=== PATIENT | female | born 1945 | race African-American/Black ===

== ENCOUNTER 2019-08-02 08:42 | Inpatient (IN) ==
--- NOTE | 2019-08-02 09:46 | Diag Imaging Result Doc PS360 ---
EXAM: CT HEAD W/O CONTRAST HISTORY: stroke like symptoms TECHNIQUE: Images were obtained from the skull base to vertex without IV contrast as per standard protocol. This exam was performed using automated exposure control, adjustment of mA or kV according to patient size, and/or use of iterative reconstruction technique. COMPARISON: 12/18/2018 There are no extra-axial collections. No acute hemorrhage is appreciated. There is deep white matter hypodensity similar to prior study suggestive of microvascular disease. No hydrocephalus, midline shift, or mass effect is identified. IMPRESSION: Atrophy and microvascular disease. No acute intracranial abnormality is appreciated. Electronically signed by Dina Escoto 08/02/2019 9:44 AM
[2019-08-02] MEDS ORDERED: NS 1,000 ML ONE (09:54)
[2019-08-02] MEDS ORDERED: NS 1,000 ML IV ONE (10:16)
[2019-08-02 10:34] LABS: BASO# 0.03 X1000 (0.0-0.2); BASO% 0.8 % (0.0-0.8); EOS# 0.14 X1000 (0.0-0.7); EOS% 3.6 % (0.0-10.0); HEMATOCRIT 39.9 % (37.0-47.0); HEMOGLOBIN 12.9 g/dL (12.0-16.0); LYMPH# 1.59 X1000 (1.2-3.4); LYMPH% 41.1 % (20.5-51.1); MCH 31.8 PG (27-31); MCHC 32.3 g/dL (33-37); MCV 98.3 FL (81-99); MONO# 0.41 X1000 (0.11-0.59); MONO% 10.6 % (1.7-9.3); MPV 9.8 FL (7.4-10.4); NEUT% 43.9 % (42.2-75.2); PLT 168 X1000 (130-400); RBC 4.06 XMIL (4.2-5.4); RDW 14.1 % (11.5-14.5); WBC 3.87 X1000 (4.8-10.8)
[2019-08-02 10:51] LABS: UR AMPHETAMINES QUAL NONE DETECTED (NONE DETECT); UR BARBITUATES QUAL NONE DETECTED (NONE DETECT); UR BENZODIAZEPIN QUAL NONE DETECTED (NONE DETECT); UR COCAINE QUAL NONE DETECTED (NONE DETECT); UR METHADONE QUAL NONE DETECTED (NONE DETECT); UR METHAMPHETAMINE QUAL NONE DETECTED (NONE DETECT); UR OPIATES QUAL PRESUMPTIVE POSITIVE (NONE DETECT); UR OXYCODONE QUAL NONE DETECTED (NONE DETECT); UR PCP QUAL NONE DETECTED (NONE DETECT); UR PROPOXYPHENE QUAL NONE DETECTED (NONE DETECT); UR TCA QUAL NONE DETECTED (NONE DETECT)
[2019-08-02 10:52] LABS: UR CANNABINOIDS QUAL NONE DETECTED (NONE DETECT)
--- NOTE | 2019-08-02 10:52 | Diag Imaging Result Doc PS360 ---
EXAM: CHEST-PORTABLE HISTORY: Stroke Like Symptoms TECHNIQUE: Single view of the chest was performed portably. COMPARISON: 10/19/2018 FINDINGS: Lung volumes are reduced. There is marked cardiomegaly. Central vascular congestion. There are prominent interstitial markings right lung base. Probable small effusions. IMPRESSION: Cardiomegaly and central vascular congestion. Interstitial edema versus infiltrate right lung base. Electronically signed by Dina Escoto 08/02/2019 10:50 AM
[2019-08-02 10:55] LABS: ALBUMIN 3.8 g/dL (3.5-5.0); CALCIUM 8.6 mg/dL (8.8-10.2); CREATININE 1.1 mg/dL (0.5-0.9); POTASSIUM 4.3 mmol/L (3.5-5.1); TOTAL BILIRUBIN 0.9 mg/dL (0.20-1.00); TOTAL PROTEIN 8.1 g/dL (6.3-8.3)
[2019-08-02 11:11] LABS: INR 1.43; PROTIME 18.2 Seconds (11.0-16.0)
[2019-08-02 11:12] LABS: PTT 32.7 Seconds (22.3-41.8)
[2019-08-02] MEDS ORDERED: NITROGLYCERIN TOP ONE (11:18)
--- NOTE | 2019-08-02 11:19 | PROVIDER DOCUMENTATION ---
This chart was entered by Nadya Landers Scribe, acting as scribe for Roberto Bruce MD. HPI-Neurological Disorder - General Chief Complaint: STROKE ALERT Stated Complaint: SOB Time Seen by Provider: 08/02/19 09:06 Source: patient, EMS Allergies/Adverse Reactions: Patient Allergies Allergy/AdvReac Type Severity Reaction Status Date / Time Penicillins Allergy Mild ANAPHYLAXIS Verified 08/19/12 18:44 Iodine and Iodide Containing Allergy RASH Verified 08/02/19 09:47 Produc levofloxacin [From Levaquin] Allergy RASH Verified 08/02/19 09:47 shellfish derived Allergy ANAPHYLAXIS Verified 12/31/17 11:39 Home Medications: Home Medication List Medication Instructions Recorded Confirmed Last Taken Type Allopurinol [Zyloprim] 300 mg PO DAILY 08/02/19 08/02/19 Unknown History Hydrocodone/Acetaminophen 1 ea PO Q6HR 08/02/19 08/02/19 Unknown History [Hydrocodone-Acetamin 7.5-325] Hydroxyzine HCl 25 mg PO DAILY PRN 08/02/19 08/02/19 Unknown History Nebivolol [Bystolic] 5 mg PO DAILY 08/02/19 08/02/19 Unknown History Potassium Chloride 10 meq PO DAILY 08/02/19 08/02/19 Unknown History Probenecid 500 mg PO DAILY 08/02/19 08/02/19 Unknown History Rivaroxaban [Xarelto] 20 mg PO DAILY 08/02/19 08/02/19 Unknown History Torsemide 20 mg PO DAILY 08/02/19 08/02/19 Unknown History Triamterene/Hydrochlorothiazid 1 ea PO 08/02/19 Unknown History [Triamterene-Hctz 37.5-25 mg Cp] - History of Present Illness-Neuro Nature of Presenting Problem: 74 yobf presents to the ed via ems with acute onset of aphasia and RUE minimal weakness @ 0630am this morning. pt has had noted intermittent sob and cough for 5 days. pt communicates by writing her information down. pt denies GALAVIZ. pt has a hx of CVA in the past and is currently on blood thinners Severity: reports: moderate Onset/Duration: reports: this morning (0630) Timing: reports: still present, constant Context: reports: impaired speech. denies: head injury, facial droop, seizure activity Character of Altered Mental Status: reports: N/A Any recent trauma/injury?: reports: none Character of Deficits: reports: new weakness, impaired speech New weakness or altered sensation location:: reports: RUE Cognitive Baseline: alert, oriented x3 Gait Baseline: walks without assistance Associated Symptoms: reports: weakness (RUE), other (aphasia). denies: headache, decreased ability to walk or stand, chest pain, neck/back pain, nausea, slurred speech, trouble walking, vision changes Similar Symptoms Previously?: Yes (hx of cva) Recently seen or treated by another doctor?: No (has an appt tomorrow with dr krishnan) Review of Systems - Adult - REVIEW OF SYSTEMS - ADULT Constitutional: denies: chills, fever Eyes: reports: no symptoms reported Ears, Nose, Mouth & Throat: reports: no symptoms reported Cardiovascular: denies: chest pain, palpitations Respiratory: reports: no symptoms reported Gastrointestinal: denies: abdominal pain, diarrhea, nausea, vomiting Genitourinary: reports: no symptoms reported Musculoskeletal: reports: see HPI, other (RUE weakness). denies: back pain, neck pain Integumentary: reports: no symptoms reported Neurological: reports: see HPI, slurred speech (aphasia). denies: dizziness/vertigo, headache/migraines Psychiatric: reports: no symptoms reported Endocrine: reports: no symptoms reported Hematologic/Lymphatic: reports: no symptoms reported Allergic/Immunologic: reports: no symptoms reported All Other Systems: Reviewed and Negative Past History - Adult - PAST MEDICAL HISTORY-ADULT Review of Records: reports: Old Records Reviewed, Nursing Assessment Review, Medications Reviewed, Social history reviewed & non-contributory. Major Childhood Illnesses: reports: denies history Cardiovascular: reports: A-Fib, HTN, hyperlipidemia Respiratory: reports: COPD, pneumonia Gastrointestinal: reports: GERD Obstetrical/Gynecological: reports: denies history Genitourinary: reports: denies history Musculoskeletal: reports: denies history Neurological: reports: CVA Endocrine/Immune: reports: denies history Other Conditions: reports: denies history - PRIOR SURGERIES/PROCEDURES Surgical/Procedure History: reports: other (heart cath) - IMMUNIZATION STATUS Childhood Immunizations: See Nurse Assessment Flu Vaccine: See Nurse Assessment - FAMILY HISTORY Family History: reviewed, not pertinent - SOCIAL HISTORY Smoking: denies Substance Use: denies Alcohol Use Frequency: never Living Situation: family Physical Exam- Neurological - Physical Exam-Neuro Initial Vital Signs Reviewed: Yes General Appearance: alert Progress - PLAN OF CARE/RESULTS Progress/Plan/Lab Results: Vital Signs - 8 hr 08/02/19 10:04 Temperature 98.1 F Pulse Rate 88 Respiratory Rate 26 H Blood Pressure 206/191 O2 Sat by Pulse Oximetry 100 Laboratory Results - last 24 hr 08/02/19 08/02/19 08/02/19 09:15 09:15 09:15 WBC RBC Hgb Hct MCV MCH MCHC RDW Std Deviation Plt Count MPV Immature Gran % (Auto) Neut % (Auto) Lymph % (Auto) Hawkins % (Auto) Eos % (Auto) Baso % (Auto) Immature Gran # (Auto) Neut # (Auto) Lymph # (Auto) Hawkins # (Auto) Eos # (Auto) Baso # (Auto) PT INR PTT (Actin FS) Sodium 140 Potassium 4.3 Chloride 102 Carbon Dioxide 24 L Anion Gap 14 BUN 14 Creatinine 1.1 H Estimated GFR/1.73 m2 49 BUN/Creatinine Ratio 13 Glucose 101 POC Glucose Calculated Osmolality 280 Calcium 8.6 L Total Bilirubin 0.90 AST 21 ALT 9 L Alkaline Phosphatase 90 Creatine Kinase 135 Troponin T High Sens 25 H Total Protein 8.1 Albumin 3.8 Globulin 4.0 Albumin/Globulin Ratio 1.0 Triglycerides Cholesterol LDL Cholesterol Direct VLDL Cholesterol, Calc HDL Cholesterol Coronary Risk Interp Plasma Lactate 1.1 Urine Opiates Screen Ur Oxycodone Screen Urine Methadone Screen U Propoxyphene Qual Ur Barbituates Screen Ur Tricyclics Screen Ur Phencyclidine Scrn Ur Amphetamines Screen U Methamphetamines Scrn U Benzodiazepines Scrn Urine Cocaine Screen U Cannabinoids Screen Plasma/Serum Ethyl Alc 08/02/19 08/02/19 08/02/19 09:15 09:15 09:15 WBC 3.87 L RBC 4.06 L Hgb 12.9 Hct 39.9 MCV 98.3 MCH 31.8 H MCHC 32.3 L RDW Std Deviation 14.1 Plt Count 168 MPV 9.8 Immature Gran % (Auto) 0.0 Neut % (Auto) 43.9 Lymph % (Auto) 41.1 Hawkins % (Auto) 10.6 H Eos % (Auto) 3.6 Baso % (Auto) 0.8 Immature Gran # (Auto) 0.00 Neut # (Auto) 1.70 Lymph # (Auto) 1.59 Hawkins # (Auto) 0.41 Eos # (Auto) 0.14 Baso # (Auto) 0.03 PT 18.2 H INR 1.43 PTT (Actin FS) 32.7 Sodium Potassium Chloride Carbon Dioxide Anion Gap BUN Creatinine Estimated GFR/1.73 m2 BUN/Creatinine Ratio Glucose POC Glucose Calculated Osmolality Calcium Total Bilirubin AST ALT Alkaline Phosphatase Creatine Kinase Troponin T High Sens Total Protein Albumin Globulin Albumin/Globulin Ratio Triglycerides Cholesterol LDL Cholesterol Direct VLDL Cholesterol, Calc HDL Cholesterol Coronary Risk Interp Plasma Lactate Urine Opiates Screen Ur Oxycodone Screen Urine Methadone Screen U Propoxyphene Qual Ur Barbituates Screen Ur Tricyclics Screen Ur Phencyclidine Scrn Ur Amphetamines Screen U Methamphetamines Scrn U Benzodiazepines Scrn Urine Cocaine Screen U Cannabinoids Screen Plasma/Serum Ethyl Alc 08/02/19 08/02/19 08/02/19 09:15 09:21 10:21 WBC RBC Hgb Hct MCV MCH MCHC RDW Std Deviation Plt Count MPV Immature Gran % (Auto) Neut % (Auto) Lymph % (Auto) Hawkins % (Auto) Eos % (Auto) Baso % (Auto) Immature Gran # (Auto) Neut # (Auto) Lymph # (Auto) Hawkins # (Auto) Eos # (Auto) Baso # (Auto) PT INR PTT (Actin FS) Sodium Potassium Chloride Carbon Dioxide Anion Gap BUN Creatinine Estimated GFR/1.73 m2 BUN/Creatinine Ratio Glucose POC Glucose 75 Calculated Osmolality Calcium Total Bilirubin AST ALT Alkaline Phosphatase Creatine Kinase Troponin T High Sens Total Protein Albumin Globulin Albumin/Globulin Ratio Triglycerides 53 Cholesterol 134 LDL Cholesterol Direct 90 VLDL Cholesterol, Calc 11 HDL Cholesterol 38 L Coronary Risk Interp 4.00 Plasma Lactate Urine Opiates Screen PRESUMPTIVE POSITIVE A Ur Oxycodone Screen NONE DETECTED Urine Methadone Screen NONE DETECTED U Propoxyphene Qual NONE DETECTED Ur Barbituates Screen NONE DETECTED Ur Tricyclics Screen NONE DETECTED Ur Phencyclidine Scrn NONE DETECTED Ur Amphetamines Screen NONE DETECTED U Methamphetamines Scrn NONE DETECTED U Benzodiazepines Scrn NONE DETECTED Urine Cocaine Screen NONE DETECTED U Cannabinoids Screen NONE DETECTED Plasma/Serum Ethyl Alc Orders Category Date Time Status Cardiac Monitoring DIRECTED Care 08/02/19 10:13 Active Finger Stick Blood Sugar (ED) DIRECTED Care 08/02/19 10:13 Active NEWS Score 2-4:Order NEWS Lactate Series NOW Care 08/02/19 08:53 Active Oxygen Therapy- ED Nursing DIRECTED Care 08/02/19 10:13 Active Saline Loc NOW Care 08/02/19 10:13 Active CHEST-PORTABLE [RAD] Stat Exams 08/02/19 10:[address] HEAD W/O CONTRAST [CT] Stat Exams 08/02/19 09:25 Completed ALCOHOL BLOOD Stat Lab 08/02/19 09:15 Completed CBC WITH ELECTRONIC DIFF [HEME] Stat Lab 08/02/19 09:15 Completed CK PROFILE [SP CHEM] Stat Lab 08/02/19 09:15 Completed COMPREHENSIVE METABOLIC PANEL [CHEM] Stat Lab 08/02/19 09:15 Completed FIBRINOGEN [COAG] Stat Lab 08/02/19 09:15 Received LACTATE, PLASMA [CHEM] Stat Lab 08/02/19 09:15 Completed LIPID PROFILE W/DIR LDL [LIPIDS] Stat Lab 08/02/19 09:15 Completed PROTIME WITH INR [COAG] Stat Lab 08/02/19 09:15 Completed PTT [COAG] Stat Lab 08/02/19 09:15 Completed TROPONIN T HIGH SENSITIVITY Stat Lab 08/02/19 09:15 Com[address] URINE DRUG SCREEN PL Stat Lab 08/02/19 10:21 Completed 0.9% Sodium Chloride Inj [Ns] 1,000 ml Med 08/02/19 09:54 Discontinued .ROUTE As directed 0.9% Sodium Chloride Inj [Ns] 1,000 ml Med 08/02/19 10:16 Active IV 999 mls/hr Altered Mental Status Stat Oth 08/02/19 10:13 Ordered Result Diagrams: 08/02/19 09:15 08/02/19 09:15 - REASSESSMENT Reassessment #1 Time Reassessed: 09:52 Status: unchanged (pt is unchanged) Reassessment Comment: dr bruce is at bedside Reassessment #2 Time Reassessed: 10:26 Status: improving (pt speech is much improved and pt now reports "my arm is arthritis") Reassessment Comment: dr bruce at bedside Reassessment #3 Time Reassessed: 11:17 Status: improving (CONTINUES IMPROVING, ADMIT AFTER DR RODRIGUEZ AND DR VALENCIA CONSULTS. BP 178/100: ADD NITROL OINTMENT.) - EKG 1 Time of EKG reading by physician:: 08:45 EKG Read and Signed by:: Roberto Bruce EKG Interpretation (*Must complete 3 of following elements*): Abnormal Rate: 100 Rhythm: afib w/premature ventricular or aberrantly conducted complexes [place]: normal QRS: normal HI Interval: normal Comments: st and t wave abnormality, consider inferior ischemia - CT/MRI 1 CT Study: Head Impression: See EMR Report (IMPRESSION: Atrophy and microvascular disease. No acute intracranial abnormality is appreciated. Electronically signed by Dina Escoto 08/02/2019 9:44 AM) - CONSULTS/PCP/HOSPITALIST Notification #1 *Consult/PCP/Hospitalist*: neuro , DR RODRIGUEZ Time Discussed: 09:49 Reason/Comments: phone consult Consult Disposition: other (WILL TELE-ASSESSPT IN A FEW MINUTES, AWARE PT IS IMPROVED AND ON XARELTO) #2 Consult: hospitalist dr valencia Time Discussed: 11:14 Consult Disposition: Will see in ED, Admit Departure - Departure Date of Disposition Decision: 08/02/19 Time of Disposition Decision: 11:15 DIAGNOSIS: Ischemic stroke, Dysarthria due to acute cerebellar stroke Disposition: ADMITTED INPATIENT 09 Certified Medical Emergency: Emergent Condition: Stable Referrals and Follow-Ups: None,PCP [Primary Care Provider] - - Critical Care Note This patient required my direct & personal management of CC.: Yes Total Time (mins): 36 Critical Care Statement: This patient required my direct personal management to treat or rule out processes, the absence of which, could potentiallly result in sudden, clinically significant life or limb threatening deterioration. Attestation - Physician/ VIDYA Attestation Patient care was provided by Advanced Practice Provider:: No The physician spent face to face time with patient:: Yes Advanced Practice Provider documentation review:: Supervising physician onsite and consulted in the evaluation and care of this patient. The physician did have a face to face encounter with the patient. - NIH Stroke Scale NIH Type: Initial Evaluation Level of Consciousness: 0-Alert LOC Questions (ask month and age): 0-Answers Both Correctly LOC Commands (ask to open & close eyes;make a fist, let go): 0-Obeys Both Correctly Best Gaze (horizontal eye movement): 0-Normal Visual (use finger movement, counting or visual threat): 0-No Visual Loss Facial Palsy (show teeth or raise eyebrows & close eyes tght: 0-Symmetrical Movement Motor Function-left arm: 0-Normal Motor Function-right arm: 1-Drift Motor Function-left le-Normal Motor Function-right le-Normal Limb Ataxia(zukfev-tvbm-rqbwsh, or heel to rodriguez): 0-No Ataxia Sensory(pin prick to face,arms,trunk,legs-compare side/side): 0-No Ataxia Best Language(name item/read sentence.Ex-Down to Earth): 2-Severe Aphasia Dysarthria(Pt read words or say words Ex.Mama,Tip-Top,Thanks: 2-Near Uni ntelligible Extinction and Inattention: 0-Normal NIH Total Score: 5 This chart was documented by the indicated scribe, (Nadya Landers, Damian) and accurately reflects the services I performed and decisions made by me, Roberto Bruce MD, as attested by the provider's signature.
[2019-08-02] MEDS ORDERED: TYLENOL PO PRN (12:42)
--- NOTE | 2019-08-02 13:21 | EKG Report ---
Test Performed on : 08/02/2019 08:45:53 AM Test Reason : cp Blood Pressure : / mmHG Vent. Rate : 100 BPM Atrial Rate : 115 BPM P-R Int : 000 ms QRS Dur : 104 ms QT Int : 316 ms P-R-T Axes : 000 009 180 degrees QTc Int : 407 ms Atrial fibrillation. with premature ventricular or aberrantly conducted complexes. ST & T wave abnormality, consider inferior ischemia Abnormal ECG When compared with ECG of 19-AUG-2012 13:25, No significant change was found Unconfirmed Result
--- NOTE | 2019-08-02 14:45 | Diag Imaging Result Doc PS360 ---
EXAM: CT THORAX W/O CONTRAST HISTORY: SOB TECHNIQUE: Images were obtained from the lung apices through bases as per standard protocol. This exam was performed using automated exposure control, adjustment of mA or kV according to patient size, and/or use of iterative reconstruction technique. COMPARISON: None. FINDINGS: Mediastinum: There is severe cardiomegaly. There is marked coronary artery calcification. There is a small pericardial effusion. There are calcified mediastinal lymph nodes consistent with prior granulomatous disease. There is a small right pleural effusion versus pleural thickening. No pathologically enlarged lymph nodes are identified. No aortic aneurysm. No hilar lymphadenopathy. Pulmonary parenchyma: There is reticulonodular infiltrate with more irregular areas of consolidation peripherally within the right upper lobe. There is increased groundglass attenuation within the right middle lobe as well as a peripheral more consolidated opacity right middle lobe. There are areas of atelectasis at the bilateral bases. Linear scarring or atelectasis within the lingula. Pleura: There are no pleural effusions. Bones: No fracture or destructive lesion is identified.1 there is degenerative spondylosis. IMPRESSION: 1.Severe cardiomegaly with coronary artery calcification. 2.Right reticular nodular upper lobe infiltrate suspicious for pneumonia or infectious bronchiolitis. 3. Other multifocal areas of atelectasis or consolidation right lung. 4.Probable mild atelectasis lingula and left lower lobe. Electronically signed by Dina Escoto 08/02/2019 2:42 PM
[2019-08-02] MEDS ORDERED: ASPIRIN PR ONE (14:49)
[2019-08-02] MEDS ORDERED: LEVAQUIN 750 MG/D5W 750 MG/150 ML IVPB IV SCH (15:00)
--- NOTE | 2019-08-02 15:37 | HISTORY AND PHYSICAL ---
PRIMARY CARE PROVIDER: Raymundo Cortez MD. SURFACE MOUNT TECHNOLOGY OPERATOR: Dr. Olmedo. She has an appointment with him tomorrow. CHIEF COMPLAINT: Shortness of breath, unable to speak. HISTORY OF PRESENT ILLNESS: Ms. Dee is a 74-year-old, female who developed shortness of breath as well as unable to speak around 6:30 a.m. this morning. She reported no other associated symptoms with it. She does have a past medical history of a CVA years ago with no residual, atrial fibrillation on blood thinners, hypertension, COPD. She is followed by Dr. Saldivar who just did a workup on her and felt that she was having heart issues and was referred to Dr. Olmedo. She does have an appointment with Dr. Olmedo in the a.m. Initial head CT did not show anything acute. We sent her for a brain MRI, MRA. However, the patient refuses, even if we give her some calming medicine. She does not want to have the MRI, MRA done. Dr. Saldivar's echocardiogram, he has a handwritten report of an EF of 30% with some enlargement. Obstructive sleep apnea, hypersomnia, cardiomyopathy, morbid obesity, left popliteal vein DVT, coronary artery disease. Three heart catheterizations in the past, two in 2008 and one in, I believe, 2012. The patient is able to speak now. She still has some residual slurred speech but you are able to understand her. She has not had any upper or lower extremity weakness. She was able to move her tongue but she was not able to stick it out far. She has bilateral lower extremity pitting edema. It looks like some chronic edema with some chronic cellulitis. We will continue with her neurological workup as well as workup for congestive heart failure. We will get our own echocardiogram so we can have it on record, as well as carotids. Again, patient has refused MRI. Currently pending proBNP. PAST MEDICAL HISTORY: Per HPI. PAST SURGICAL HISTORY: States that she has had a breast biopsy on the left. She cannot have any fingersticks. I did clarify that with her. She reported it was not a mastectomy. Three heart catheterizations in the past. Right ovary removed. ALLERGIES: To penicillin, iodine, levofloxacin, shellfish. HOME MEDICATIONS: Tylenol, Zyloprim, Elrod, Atarax, Bystolic, Zofran, potassium, Benemid, Xarelto, and Demadex. SOCIAL HISTORY: She is an ex-smoker. She smoked for 40 years. She quit 12 years ago. No alcohol, tobacco, or illicit drug use. Lives with family. FAMILY HISTORY: Father with diabetes and congestive heart failure. Mother with congestive heart failure, several MIs, thyroid, breast, and brain metastasis. Sister with diabetes. Brother with diabetes. REVIEW OF SYSTEMS: Twelve-point review of systems completely negative except for those mentioned in the HPI. PHYSICAL EXAMINATION: VITAL SIGNS: Temperature is 98.1 degrees, heart rate 76, respirations 25, blood pressure is 191/103, O2 is 96% on 2 L nasal cannula. GENERAL: Ms. Dee is a pleasant, 74-year-old, female who is sitting up in the bed, in no acute distress. HEENT: Atraumatic, normocephalic. PERRL. NECK: Supple. Trachea midline. CARDIOVASCULAR: S1, S2 appreciated. No murmurs, gallops, rubs noted. RESPIRATORY: Lungs sound clear bilaterally, decreased in the bases. GI: Soft, nontender, nondistended. Positive bowel sounds in 4 quadrants. EXTREMITIES: Lower extremities with 2 to 3+ pitting edema with some redness. She looks like she has some chronic cellulitis. There are no open sores or oozing. She did ambulate to the bathroom with assistance. Did not notice any weakness or issues with gait. It is very limited. She just pivoted to the bed. NEUROLOGIC: She is awake. She is alert. She is oriented. She follows commands. She moves all extremities. She knows her name, date of , present year, President, current events with Covid 19 virus. She know she is at [place]. She does have some slurred speech. Did not appreciate any facial drooping. Her tongue, she was not really able to stick it out all the way. She was able to smile. It was symmetrical. All extremity strength was 5/5. Shoulder shrug was strong. DIAGNOSTIC DATA: Patient has refused MRI, MRA, carotids. Echocardiogram pending. CT of the thorax pending. Head CT did not show any acute changes. LABORATORY DATA: White count 3, hemoglobin and hematocrit 12 and 39, platelet count is 168,000. Sodium 140, potassium 4.3, BUN 14, creatinine 1.1, blood glucose is 101. Troponin 25. ProBNP is 3720. Two sets of lactates are negative. Positive for opiates, which she has a prescription. ASSESSMENT AND PLAN: 1. Acute cerebrovascular accident, affected the patient's speech. It does not appear to affect anything else. Should be ischemic. However, she is on anticoagulation with, I believe, Xarelto. We will check that dosing to make sure she is on the proper dosing. Add a low-dose aspirin and statin. She has refused brain MRA, MRI, even if we give her some anxiety medication. She does not wish to have the test done. We will continue with her other full neurological workup. Have physical therapy and speech therapy consulted, as well as criminal justice social worker. 2. Probable congestive heart failure exacerbation. The patient was having some shortness of breath. She does have 2 to 3+ or more lower extremity pitting edema. She reports it has been there for about 2 years. 3. RUL pneumonia and last lactate is positive, with allergies will order Vanc and Azactam. 3. Chronic bilateral lower extremity cellulitis. No open sores. There is some redness. It does not appear to be infected. 4. [facility]omyopathy[facility]. 5. Mild abdominal aortic aneurysm. 6. Atrial fibrillation, appears to be rate controlled. 7. Coronary artery disease. Did not really complain of any chest pain. 8. Obstructive sleep apnea. 9. Chronic obstructive pulmonary disease. This does not appear to be a chronic obstructive pulmonary disease exacerbation. 10. Accelerated hypertension. We will allow for some permissive hypertension. 11. History of a left popliteal deep venous thrombosis for which she had been on Xarelto. This was back in October of 2017. 12. Repeated falls. The patient uses a cane for gait stability. 13. Insomnia. 14. Further recommendations to follow physician evaluation, laboratory and diagnostic data. Dictated by SUNDAY Beck for Jose Colunga MD cc: MD Tanvir Gilman MD MTDD
[2019-08-02] MEDS ORDERED: VANCOMYCIN IV PER PHARMACY MISC SCH (16:15)
[2019-08-02] MEDS ORDERED: DUONEB (A & A) INH PRN (16:18)
[2019-08-02] MEDS: LASIX IV SCH (17:41)
[2019-08-02] MEDS: AZACTAM 1 GM in NS 50 ML IV SCH (17:41)
[2019-08-02 17:45] LABS: BASO# 0.02 X1000 (0.0-0.2); BASO% 0.5 % (0.0-0.8); EOS% 2.4 % (0.0-10.0); HEMATOCRIT 40.4 % (37.0-47.0); HEMOGLOBIN 12.7 g/dL (12.0-16.0); IMM GRAN# 0.01 X1000 (0.0-0.04); IMM GRAN% 0.2 % (0.0-0.5); LYMPH# 1.72 X1000 (1.2-3.4); LYMPH% 40.6 % (20.5-51.1); MCH 31.4 PG (27-31); MCHC 31.4 g/dL (33-37); MCV 99.8 FL (81-99); MONO% 9.4 % (1.7-9.3); MPV 9.3 FL (7.4-10.4); NEUT# 1.99 X1000 (1.4-6.5); NEUT% 46.9 % (42.2-75.2); PLT 166 X1000 (130-400); RBC 4.05 XMIL (4.2-5.4); RDW 14.1 % (11.5-14.5); WBC 4.24 X1000 (4.8-10.8)
[2019-08-02 17:51] LABS: URINE SOURCE CLEAN CATCH
[2019-08-02 17:54] LABS: BILIRUBIN URINE NEGATIVE (NEGATIVE); BLOOD URINE NEGATIVE (NEGATIVE); COLOR YELLOW; GLUCOSE URINE NEGATIVE (NEGATIVE); KETONE URINE NEGATIVE (NEGATIVE); LEUKOCYTES URINE NEGATIVE (NEGATIVE); NITRITE URINE NEGATIVE (NEGATIVE); PH URINE 6.5; PROTEIN URINE NEGATIVE (NEGATIVE); SP GRAVITY URINE 1.013; TURBIDITY URINE CLEAR (CLEAR); UROBILINOGEN URINE NORMAL (NORMAL)
[2019-08-02 17:56] LABS: UR EPITHELIAL CELLS <10 /HPF (<10); URINE BACTERIA 2+ /HPF; URINE RBC <10 /HPF (<10); URINE WBC <10 /HPF (<10)
[2019-08-02 18:02] LABS: ALBUMIN 3.7 g/dL (3.5-5.0); CALCIUM 8.7 mg/dL (8.8-10.2); POTASSIUM 4.4 mmol/L (3.5-5.1); TOTAL BILIRUBIN 1.3 mg/dL (0.20-1.00); TOTAL PROTEIN 7.6 g/dL (6.3-8.3)
[2019-08-02] MEDS: ZITHROMAX 500 MG/NS 500 MG/250 ML IVPB IV SCH (18:18)
--- NOTE | 2019-08-02 19:35 | HISTORY AND PHYSICAL ---
ADDENDUM: Patient presented to the hospital with shortness of breath Her speech is actually improved upon my examining her. However, it is not back to her baseline. It is still dysarthric. She has marked swelling in her lower extremities. Ultrasound does demonstrate a DVT chronically and possibly acute. We are going to place her on Lovenox. Patient does admit that she has not been very compliant with her Xarelto. Carotid ultrasound is negative. We will follow her congestive heart failure exacerbation. Further orders as needed. Please see full note. cc: Jose Colunga MD MTDD
[2019-08-02] MEDS: LOVENOX SUBQ SCH (20:01)
[2019-08-02] MEDS: VANCOMYCIN 2,500 MG in NS 500 ML IV SCH (20:01)
[2019-08-02] MEDS: DUONEB (A & A) INH SCH (20:16)
[2019-08-03] MEDS: DUONEB (A & A) INH SCH ×7 (00:24→22:40)
[2019-08-03] MEDS: AZACTAM 1 GM in NS 50 ML IV SCH ×3 (02:55→20:22)
[2019-08-03] MEDS: ZOFRAN IV PRN (03:55)
[2019-08-03] MEDS: LASIX IV SCH ×2 (04:10→18:22)
[2019-08-03 06:15] LABS: BASO# 0.02 X1000 (0.0-0.2); BASO% 0.4 % (0.0-0.8); EOS# 0.05 X1000 (0.0-0.7); HEMATOCRIT 40.5 % (37.0-47.0); LYMPH# 1.05 X1000 (1.2-3.4); LYMPH% 20.7 % (20.5-51.1); MCH 31.7 PG (27-31); MCHC 32.1 g/dL (33-37); MCV 98.8 FL (81-99); MONO# 0.73 X1000 (0.11-0.59); MONO% 14.4 % (1.7-9.3); MPV 9.5 FL (7.4-10.4); NEUT# 3.22 X1000 (1.4-6.5); NEUT% 63.5 % (42.2-75.2); PLT 160 X1000 (130-400); RDW 14.3 % (11.5-14.5); WBC 5.07 X1000 (4.8-10.8)
[2019-08-03 06:36] LABS: ALBUMIN 3.7 g/dL (3.5-5.0); CALCIUM 8.7 mg/dL (8.8-10.2); CREATININE 1.1 mg/dL (0.5-0.9); POTASSIUM 3.6 mmol/L (3.5-5.1); TOTAL BILIRUBIN 1.6 mg/dL (0.20-1.00)
--- NOTE | 2019-08-03 08:25 | Vascular Study Report ---
EXAM: Venous U/S Bilateral Legs INDICATION: r/o DVT has POP dvt hx TECHNIQUE: COMPARISON: None. FINDINGS: There is an acute thrombus in the left popliteal vein that does not appear to be completely occlusive. There is also a filling defect in the right popliteal vein that is adherent to the wall suggesting a chronic thrombus that is nonocclusive. No other filling defects are identified and there is normal Doppler flow and compressibility involving the remainder of the left and right deep venous systems. The great saphenous veins appear to be patent. IMPRESSION: Acute left popliteal vein DVT and chronic appearing right popliteal vein DVT. Electronically signed by George Raphael 08/03/2019 8:23 AM
--- NOTE | 2019-08-03 08:29 | Vascular Study Report ---
EXAM: Carotid Ultrasound INDICATION: cva TECHNIQUE: COMPARISON: None. FINDINGS: Right: There is mild to moderate calcific atherosclerotic plaque at the right carotid bulb. The peak systolic velocity measures 98, 41, 30, 23, 39, 64, and 69 cm/s at the right subclavian artery, CCA, bifurcation, proximal ICA, mid ICA, distal ICA, and ECA, respectively. There is antegrade flow in the vertebral artery. The carotid ratio is 1.55. Left: There appears to be trace atherosclerotic plaque at the left carotid bulb. The peak systolic velocity measures 134, 56, 41, 35, 38, 54, and 46 cm/s at the left subclavian artery, CCA, bifurcation, proximal ICA, mid ICA, distal ICA, and ECA, respectively. There is antegrade flow in the vertebral artery. The carotid ratio is 0.97. IMPRESSION: Mild to moderate atherosclerotic plaque at the right carotid bulb and mild atherosclerotic plaque at the left carotid bulb but no evidence of hemodynamically significant stenosis based on Doppler. Electronically signed by George Raphael 08/03/2019 8:27 AM
[2019-08-03] MEDS ORDERED: ATARAX PO PRN (09:00)
[2019-08-03] MEDS ORDERED: XARELTO PO SCH (09:00)
[2019-08-03] MEDS ORDERED: DEMADEX PO SCH (09:00)
[2019-08-03] MEDS: LOVENOX SUBQ SCH ×2 (09:20→20:22)
[2019-08-03] MEDS: ASPIRIN PO SCH (09:21)
[2019-08-03] MEDS: BENEMID PO SCH (09:21)
[2019-08-03] MEDS: BYSTOLIC PO SCH (09:22)
[2019-08-03] MEDS: KLOR-CON PO SCH (09:22)
[2019-08-03] MEDS: ZYLOPRIM PO SCH (09:22)
--- NOTE | 2019-08-03 12:09 | ECHO REPORT ---
ORDER DATE: 08/02/2019 INDICATION: CVA. FINDINGS: 1. The right atrium is severely enlarged. 2. Severe tricuspid regurgitation. RV systolic pressure of 57 suggesting pulmonary hypertension. 3. The right ventricle is probable normal in size with reduction in RV systolic function. 4. Mild pulmonic insufficiency. 5. Severe left atrial enlargement with a volume index of 65. 6. No mitral valve prolapse. Moderate to possibly severe mitral regurgitation. This is an eccentric jet. No mitral stenosis. 7. Dilated left ventricle with an end-diastolic dimension of 5.9 cm. Normal wall thicknesses with a posterior and interventricular septal wall thickness of 1.1 cm each. There is severe reduction in LV systolic function with an estimated EF of 20 to 25 percent and global hypokinesis. Restrictive physiology is present. 8. Aortic valve opens well. It is trileaflet. No evidence of stenosis or insufficiency. 9. Aorta appears normal in visualized segments. 10. There is a small predominantly posterior pericardial effusion with no evidence of tamponade physiology. cc: Eriberto Short MD
[2019-08-03] MEDS: NORCO-7.5 PO SCH ×2 (15:37→20:22)
[2019-08-03] MEDS: ZITHROMAX 500 MG/NS 500 MG/250 ML IVPB IV SCH (18:23)
[2019-08-03] MEDS: VANCOMYCIN 2,500 MG in NS 500 ML IV SCH (20:20)
[2019-08-03] MEDS: PRAVACHOL PO SCH (21:44)
[2019-08-04] MEDS: NORCO-7.5 PO SCH ×5 (01:45→20:50)
[2019-08-04] MEDS: AZACTAM 1 GM in NS 50 ML IV SCH ×2 (01:46→03:43)
--- NOTE | 2019-08-04 02:04 | PROGRESS NOTE ---
DATE: 08/03/2019 SUBJECTIVE: Patient notes that her speech although garbled is improving nicely. States she is still having swelling of the left lower extremity. PHYSICAL EXAMINATION: Vital Signs: She is afebrile. Pulse 80s. Blood pressure stable, 160s/90. General: Patient is pleasant. No distress. HEENT: Normocephalic. Neck: Supple. Cardiovascular: Regular rate. Chest: Clear. Abdomen: Soft. Extremities: Moves all extremities. She does have 2+ edema left lower extremity, 1+ on the right. ASSESSMENT: 1. Deep venous thrombosis, left lower extremity. 2. Acute cerebrovascular accident with dysarthric speech. 3. Congestive heart failure. 4. Right upper lobe pneumonia. 5. Cardiomyopathy. 6. Coronary artery disease. PLAN: We are going to continue patient in the hospital. Continue Lovenox today. She is on azithromycin, Azactam and vancomycin as well as Lasix 40 IV q.12. We will continue to follow. cc: Jose Colunga MD
[2019-08-04] MEDS: DUONEB (A & A) INH SCH ×6 (03:21→22:52)
[2019-08-04] MEDS: LASIX IV SCH (04:14)
[2019-08-04] MEDS: ASPIRIN PO SCH (08:46)
[2019-08-04] MEDS: XARELTO PO SCH ×2 (08:46→17:13)
[2019-08-04] MEDS: BENEMID PO SCH (08:47)
[2019-08-04] MEDS: BYSTOLIC PO SCH (08:48)
[2019-08-04] MEDS: KLOR-CON PO SCH (08:48)
[2019-08-04] MEDS: ZYLOPRIM PO SCH (08:48)
[2019-08-04] MEDS ORDERED: LASIX IV SCH (09:00)
[2019-08-04] MEDS: KEFLEX PO SCH ×2 (13:03→17:12)
--- NOTE | 2019-08-04 16:38 | PROGRESS NOTE ---
DATE: 08/04/2019 SUBJECTIVE: The patient notes that she is feeling a lot better. Her speech is improved although not quite back to her baseline. Denies any fevers or chills. PHYSICAL EXAMINATION: vital signs: Temperature 98 degrees, pulse 85, respiratory 20, BP 165/95. General: The patient is awake, pleasant, in no distress. HEENT: Normocephalic. Neck: Supple. Cardiovascular: Regular rate. Chest: Clear. Abdomen: Soft. Extremities: She still has marked edema in her left lower extremity. Neurologic: Her speech continues to improve back to her baseline. ASSESSMENT: 1. Acute cerebrovascular accident with dysarthric speech. 2. Escherichia coli urinary tract 3. Deep venous thrombosis, left lower extremity. 4. Congestive heart failure. 5. Right upper lobe pneumonia. PLAN: 1. We are going to change her antibiotics. 2. Stop her azithromycin and vancomycin as she has Escherichia coli in her urine. 3. Continue to follow her heart failure. 4. Decrease her Lasix from b.i.d. to daily. 5. Further orders as needed. cc: Jose Colunga MD [facility]
[2019-08-04] MEDS: PRAVACHOL PO SCH (20:50)
[2019-08-05] MEDS: NORCO-7.5 PO SCH ×4 (01:21→20:20)
[2019-08-05] MEDS: DUONEB (A & A) INH SCH ×6 (03:12→22:55)
[2019-08-05] MEDS: ZYLOPRIM PO SCH (09:27)
[2019-08-05] MEDS: KEFLEX PO SCH ×3 (09:27→17:20)
[2019-08-05] MEDS: KLOR-CON PO SCH (09:27)
[2019-08-05] MEDS: BYSTOLIC PO SCH (09:28)
[2019-08-05] MEDS: ASPIRIN PO SCH (09:28)
[2019-08-05] MEDS: BENEMID PO SCH (09:29)
[2019-08-05] MEDS: XARELTO PO SCH ×2 (09:29→17:20)
--- NOTE | 2019-08-05 12:21 | PROGRESS NOTE ---
DATE: 08/05/2019 SUBJECTIVE: The patient notes that she is feeling better. She is a little bit stronger. Still having difficulty getting from the bed to the chair and back. Still having swelling in her lower extremities. Has chronic pain due to her chronic neuropathy. PHYSICAL EXAMINATION: Vital signs: Temperature 98 degrees, pulse 80s, respiratory 20, blood pressure stable. General: Patient is pleasant. She is in no respiratory distress. HEENT: Normocephalic. Neck: Supple. Cardiovascular: Regular rate. Chest: Clear, nonlabored. Abdomen: Soft, nondistended. Extremities: 2+ edema bilateral lower extremities. Neurologic: She is generally weak. Her speech is actually much improved. Appears fairly close back to her baseline. ASSESSMENT: 1. Acute cerebrovascular accident with dysarthric speech, improved. 2. Deep venous thrombosis. Continue Xarelto. 3. Escherichia coli urinary tract infection, currently on Keflex. 4. Cardiomyopathy. PLAN: We are going to continue the patient in the hospital. Continue to follow. She appears to be improving each day. We will continue Lasix for her congestive heart failure, pulmonary edema and will follow. cc: Jose Colunga MD
[2019-08-05] MEDS: PRAVACHOL PO SCH (20:19)
[2019-08-06] MEDS: NORCO-7.5 PO SCH ×4 (02:30→21:59)
[2019-08-06] MEDS: DUONEB (A & A) INH SCH ×6 (03:15→23:01)
[2019-08-06] MEDS: ZOFRAN IV PRN (08:31)
[2019-08-06] MEDS: ASPIRIN PO SCH (12:04)
[2019-08-06] MEDS: XARELTO PO SCH ×2 (12:04→17:28)
[2019-08-06] MEDS: BENEMID PO SCH (12:05)
[2019-08-06] MEDS: KLOR-CON PO SCH (12:05)
[2019-08-06] MEDS: KEFLEX PO SCH ×4 (12:05→17:28)
[2019-08-06] MEDS: BYSTOLIC PO SCH (12:05)
[2019-08-06] MEDS: ZYLOPRIM PO SCH (12:06)
[2019-08-06] MEDS: LASIX PO SCH (12:06)
--- NOTE | 2019-08-06 18:43 | PROGRESS NOTE ---
DATE: 08/06/2019 SUBJECTIVE: Patient with no new complaints. Notes that her speech is almost back to normal. She is still tired, having bilateral leg pain, having difficulties walking secondary to her leg pain. OBJECTIVE: Vital signs: Temperature 98, pulse 75, respiratory rate 18, BP 149/69. General: Patient is pleasant, no distress. HEENT: Normocephalic. Neck: Supple. Cardiovascular: Regular rate. Chest: Clear. Abdomen: Soft. Extremities: Moves all extremities. ASSESSMENT: 1. Acute cerebrovascular accident with dysarthric speech, improved. 2. Deep vein thrombosis. 3. Pneumonia. 4. Generalized weakness with adult failure to thrive. PLAN: We are going to continue the patient in the hospital today. We will consider rehab tomorrow. Her congestive heart failure has improved. She is on p.o. Lasix. Further orders as needed. cc: Jose Colunga MD
[2019-08-06] MEDS: PRAVACHOL PO SCH (20:24)
[2019-08-07] MEDS: NORCO-7.5 PO SCH ×4 (01:37→20:08)
[2019-08-07] MEDS: DUONEB (A & A) INH SCH ×6 (03:33→22:57)
[2019-08-07] MEDS: BENEMID PO SCH ×2 (07:57→08:03)
[2019-08-07] MEDS: LASIX PO SCH ×2 (07:58→08:03)
[2019-08-07] MEDS: KEFLEX PO SCH ×4 (07:58→20:07)
[2019-08-07] MEDS: XARELTO PO SCH ×2 (07:58→16:35)
[2019-08-07] MEDS: BYSTOLIC PO SCH ×2 (07:58→08:04)
[2019-08-07] MEDS: KLOR-CON PO SCH ×2 (07:58→08:03)
[2019-08-07] MEDS: ASPIRIN PO SCH ×2 (07:58→08:03)
[2019-08-07] MEDS: ZYLOPRIM PO SCH ×2 (07:58→08:03)
--- NOTE | 2019-08-07 11:02 | DISCHARGE SUMMARY ---
ADMISSION DATE: 08/02/2019 DISCHARGE DATE: 08/07/2019 PRIMARY CARE PHYSICIAN: Dr. Raymundo Cortez. ADMISSION DIAGNOSES: 1. Acute cerebrovascular accident. 2. Probable congestive heart failure exacerbation. 3. Right upper lobe pneumonia. 4. Cardiomyopathy. 5. Mild abdominal aortic aneurysm. 6. Atrial fibrillation. 7. Coronary artery disease. 8. Obstructive sleep apnea. 9. Chronic obstructive pulmonary disease. 10. Accelerated hypertension. 11. Repeated falls. 12. Insomnia. DISCHARGE DIAGNOSES: 1. Acute cerebrovascular accident with dysarthric speech, improved. 2. Deep vein thrombosis. 3. Pneumonia. 4. Generalized weakness with adult failure to thrive summary. SUMMARY OF FINDINGS: This is a 74-year-old female with a past history of a CVA years ago with no residual presented after she developed some shortness of breath and was unable to speak that began around 6:30 on the morning of arrival. Initial CT did not show anything acute, so we sent her for brain MRI and MRA. The patient refuses. Even if we gave her some calming medicine she did not want it. She her speech improved and was able to speak during the assessment, but still has some residual slurred speech, but you could understand what she was saying. She continued to refuse the MRI of the brain. We did do a chest CT on 08/02/2019 that showed right reticular nodule upper lobe infiltrate suspicious for pneumonia or infectious bronchiolitis. She was placed on IV antibiotics, breathing treatments. We did do an echocardiogram that showed an ejection fraction of 20 to 25 percent with severe reduction in LV systolic function. We did a carotid Doppler that showed mild to moderate atherosclerotic plaque in the right carotid bulb and mild arthrosclerotic plaque at the left carotid bulb, but no evidence of hemodynamically significant stenosis by Doppler. On 08/02/2019 we also did a bilateral lower extremity venous Doppler that showed an acute left popliteal vein DVT and a chronic appearing right popliteal vein DVT. She was anticoagulated and has been started on Xarelto 15 mg p.o. b.i.d. She has remained afebrile. White blood cell count is 5.07 on 08/03/2019, and it is now felt that she can safely be discharged home with home health. We did encourage rehab but patient wanted to go home with home health. DISCHARGE MEDICATIONS: Allopurinol 300 mg p.o. daily, Aspirin 81 mg p.o. daily, [place] 7.5 one p.o. q. 6 hours, hydroxyzine 25 mg p.o. daily p.r.n., Bystolic 5 mg p.o. daily, potassium 10 mEq p.o. daily, Probenecid 500 mg p.o. daily, Keflex 500 mg p.o. t.i.d. #15 with no refills, Xarelto 15 mg p.o. b.i.d. #42 with no refills then start Xarelto 20 mg p.o. daily and triamterene/hydrochlorothiazide 37.5/25 p.o. daily. FOLLOWUP: She will follow up with her primary care physician in 1 to 2 weeks and again she will have home health services. All discharge instructions have been reviewed and she verbalizes understanding. TIME SPENT: 35 minute. Dictated by SUNDAY Froman for Jose Colunga MD cc: SUNDAY Forman MD Wayne E. Thomas, MD
[2019-08-07] MEDS: PRAVACHOL PO SCH (20:07)
--- NOTE | 2019-08-07 20:15 | PROGRESS NOTE ---
DATE: 08/07/2019 SUBJECTIVE: Patient notes that she is feeling better, although she is still weak and fatigued. She is having difficulty ambulating, although is ambulating some. Speech is almost back to normal. PHYSICAL EXAMINATION: Vital signs: Temperature 98 degrees, pulse 76, respiratory rate 18, BP 150/90. General: Patient is awake, pleasant, in no distress. HEENT: Normocephalic. Neck: Supple. Cardiovascular: Regular rate. Chest: Clear. Abdomen: Soft. ASSESSMENT: 1. Acute cerebrovascular accident with dysphagia, improved. 2. Escherichia coli, currently on Keflex given her allergies. 3. Congestive heart failure, stable. 4. Bilateral lower extremity edema with deep venous thromboses. 5. Cardiomyopathy. 6. Atrial fibrillation. 7. Known coronary artery disease. PLAN: We are going to continue patient in the hospital. Continue Xarelto. She was not on Xarelto at home. She admits that she had become very lax in taking it. We will continue physical therapy and hopefully transition to rehab. cc: Jose Colunga MD
[2019-08-08] MEDS: NORCO-7.5 PO SCH (02:20)
[2019-08-08] MEDS: DUONEB (A & A) INH SCH ×2 (03:23→08:15)
[2019-08-08] MEDS ORDERED: NORCO-7.5 PO PRN (07:28)
[2019-08-08 07:44] VITALS: BP 148/73
[2019-08-08] MEDS: KLOR-CON PO SCH ×2 (07:45→08:08)
[2019-08-08] MEDS: BENEMID PO SCH ×2 (07:45→08:08)
[2019-08-08] MEDS: XARELTO PO SCH (07:45)
[2019-08-08] MEDS: KEFLEX PO SCH ×2 (07:45→08:08)
[2019-08-08] MEDS: LASIX PO SCH ×2 (07:45→08:08)
[2019-08-08] MEDS: ASPIRIN PO SCH ×2 (07:45→08:07)
[2019-08-08] MEDS: BYSTOLIC PO SCH ×2 (07:45→08:08)
[2019-08-08] MEDS: ZYLOPRIM PO SCH ×2 (07:46→08:08)
--- NOTE | 2019-08-08 10:04 | DISCHARGE SUMMARY ---
ADMISSION DATE: 08/02/2019 DISCHARGE DATE: 08/08/2019 ADDENDUM: The patient was initially going home yesterday with Home Health Services, when she made the decision to change and go to rehab, and a bed was not available yesterday. There is a bed available today, so the patient will be discharged to rehab today with the same admission and discharge diagnoses, the same discharge medications, and summary of findings as found on the previously dictated discharge summary. Dictated by SUNDAY Forman for Christopher Irby MD cc: SUNDAY Forman MD Dr. Thomas
== END 2019-08-08 09:41 | DRG 64 ==
LOC: P.ED 08:42 → P.MEDSURG 12:14 → SUATTDRO 12:14
PROVIDERS: ATTEND Internal Medicine